=== PATIENT | male | born 1955 | race Caucasian/White ===

== ENCOUNTER → 2022-08-25 | Outpatient (CLI) | payer OTHER ==
[~2022-08-25] MED LIST: GADOTERATE MEGLUMINE 10 MMOL/20 ML VIAL IVP ONE
== END | disposition home or self-care (01) ==
LOC: RADPV 10:15
DX: I63.9 Cerebral infarction, unspecified (principal); I67.82 Cerebral ischemia; J34.89 Other specified disorders of nose and nasal sinuses
CPT/HCPCS: 70553; A9575